=== PATIENT | female | born 1940 | race Caucasian/White ===

== ENCOUNTER 2019-08-26 11:05 | Outpatient (CLI) | payer MEDICARE, SELFPAY ==
[2019-08-26 11:33] LABS: Basophils % 0.7 %; Eosinophils # 0.1 10^3/uL (0.0-0.8); Eosinophils % 1.9 %; Hematocrit 40.9 % (37.0-47.0); Hemoglobin 13.2 g/dL (11.5-15.3); Lymphocytes % 23.3 %; Mean Corpuscular HGB Conc 32.3 g/dL (30.0-36.0); Mean Corpuscular Hemoglobin 29.7 pg (28.0-34.0); Mean Corpuscular Volume 91.9 fL (81-99); Mean Platelet Volume 10.2 fL (7.4-10.4); Monocytes # 0.4 10^3/uL (0.2-0.9); Monocytes % 8.9 %; Neutrophils # 2.7 10^3/uL (1.8-7.7); Nucleated Red Blood Cells % 0 %; Platelet Count 213 10^3/cmm (130-400); Red Blood Count 4.45 10^6/uL (4.1-5.3); Red Cell Distribution Width 12.3 % (12.1-15.1); White Blood Count 4.2 10^3/uL (4.0-10.0)
[2019-08-26 12:01] LABS: Alanine Aminotransferase 9 U/L (0-33); Albumin Level 3.9 g/dL (3.5-5.2); Alkaline Phosphatase 69 IU/L (35-105); Anion Gap 15.2 (5-19); Aspartate Amino Transferase 18 U/L (0-32); Blood Urea Nitrogen 9 mg/dL (8-23); Calcium 9.6 mg/dL (8.5-10.5); Carbon Dioxide 26 mmol/L (22-29); Chloride 104 mmol/L (98-107); Globulin 3.6 g/dL (1.3-4.6); Glucose 103 mg/dL (65-115); Potassium 4.2 mmol/L (3.5-5.1); Sodium 141 mmol/L (136-145); Total Bilirubin 0.8 mg/dL (0.15-1.2); Total Protein 7.5 g/dL (6.6-8.7)
[2019-08-26 12:35] LABS: 25 Hydroxy Vitamin D 48 ng/mL (30-100)
--- NOTE | 2019-08-27 06:53 | ONC FU_ITS ---
Dr. Arora Patient Follow-Up Note Patient: Mame Zhao Unit #: [id number]: [id number] Dicatated By: Bennie Arora M.D.Date of Visit:Aug 26, 2019 Onc Med Follow-up/Prog Note Chief Complaint: Breast cancer/endometrial cancer. History of Present Illness: This is a 79 year-old woman with grade 2 infiltrating ductal carcinoma of the right breast, stage IA (T1b, N0, M0), ER/VA positive and HER-2/al negative. She has a history of early stage endometrial cancer diagnosed in 2008. She underwent primary resection in July of [address] Fortune. In November of 2009 she had a local recurrence for which she underwent definitive radiation treatment by Dr. Augustina Gan. She was subsequently followed by Dr. Mccarty for the endometrial cancer. She was found to have an abnormal routine screening mammogram on 04/02/2014. The followup additional views on 04/16/2014 showed persistent 11 mm distortion at 7:00, but no further lesions at 12:00. She underwent an ultrasound-guided biopsy of the 7:00 lesion of the right breast on 05/06/2014. Pathology showed grade 2 infiltrating ductal carcinoma, with a high proliferative activity, ER 100%, VA 94%, HER-2/al 2+ by IHC, but FISH not amplified at 1.1. On 07/08/2014 she underwent right breast lumpectomy and sentinel lymph node biopsy by Dr. Das. Her surgical pathology showed 6x5 mm, grade 2/3, infiltrating ductal carcinoma. Margins were negative but close at 1 mm superiorly. One sentinel lymph node was negative for metastatic disease. Thus her disease was pathologic stage IA (pT1b, pN0). Oncotype DX score was low at 17, corresponding to an 11% risk of recurrence in the next 10 years following hormonal treatment. She was given adjuvant radiation to the right breast, completed on 10/04/2014 to a total dose of 6400 cGy. She began on adjuvant hormonal therapy with anastrozole 1 mg daily on 08/03/2014. Vitamin D deficiency was replaced. DEXA scan revealed moderate osteopenia with T score -1.6. Her repeat DEXA scan in August 2016 continued to show osteopenia with T score -1.7 in the left femoral neck and -1.6 in the right femoral neck, but not significantly changed from the previous study. She continued adjuvant hormonal therapy with anastrozole 1 mg daily, which she tolerated well. Her other medical illnesses, in addition to endometrial cancer, include hyperlipidemia and hypothyroidism. She is a nonsmoker. INTERIM HISTORY: She is seen for a scheduled visit. She has been feeling good generally. She says she has stopped the anastrozole at the end of July, as she had completed her 5 years of treatment. Her only significant complaint is that she had developed a respiratory infection 8 to 10 days ago, but it is pretty well resolved now. Her energy has been good and she has normal activity. Appetite also is good. Her weight is stable. She had fever at the initial onset of the respiratory infection, but otherwise none. She has not had hot flashes or night sweating. She does not have cough now, and she has no shortness of breath or chest pain. She has no GI complaints. Her bladder function has been pretty good lately, as she has not had as much urgency. She has had no further vaginal bleeding or spotting. She is not having any significant joint or bone pain. She has no focal neurologic symptoms. Medications: Brinzolamide-Brimonidine 1 drop(s) (of 1-0.2 %) Suspension Ophthalmic b.i.d., Calcium + D 1 Tablet Oral daily, Cholecalciferol 1 (1000 Units) Tablet Oral daily, Dorzolamide HCl Solution Ophthalmic b.i.d., Hair Skin & Nails Gummies 1 Tablet, chewable Oral daily, Levothyroxine Sodium 1 (50 mcg) Tablet Oral daily, Senna 1 Capsule Oral daily, Timolol Maleate Solution Ophthalmic b.i.d. Allergies: No Known Allergies. Review of Systems: Constitutional - Her energy is good. She has normal activity. Her appetite is good and her weight is stable. No fever, chills, hot flashes, or night sweats. ECOG score is 0, ENMT - She currently has a cold. Otherwise, she has no sinus congestion/drainage. No mouth sores. No sore throat or difficulty swallowing, Hematologic/Lymphatic - No abnormal bruising or bleeding, Respiratory - No shortness of breath. No cough. No pleuritic pain or hemoptysis, Cardiovascular - No angina pain. No palpitations, Gastrointestinal - No nausea or vomiting. No heartburn or acid reflux. Her bowels are regular. No diarrhea or constipation. No blood in the stool or black stools, Genitourinary (F) - No dysuria or hematuria. No urinary frequency. No urgency or incontinence, Musculoskeletal - No joint or bone pain, Integumentary - No skin complications, Neurologic - No headache. She gets dizzy if she gets up too quickly. No numbness/paresthesias or other focal neurologic symptoms, Psychiatric - No anxiety or depression. No insomnia. Vital Signs: Performed on Aug 26, 2019 12:35 Height - 64.00 in Weight - 131.6 lbs (LOW) BSA - 1.64 sq.m BMI - 22.59 Temperature - 99.0 F (HIGH) Pulse - 56 /min (LOW) Respiration - 18 /min BP - 148/61 mm(hg) (HIGH) O2 Sat - 100 % Pain - 0 Physical Examination: Constitutional - She looks good generally, Eyes - Sclerae nonicteric. Conjunctivae clear, ENMT - No lesions noted in the oral cavity, Hematologic/Lymphatic - No cervical or clavicular adenopathy, Respiratory - Lungs are clear with good air movement bilaterally, Cardiovascular - Heart rhythm is regular. There is no murmur, gallop, or rub noted, Breasts - There are no breast masses noted. There is no axillary adenopathy, Abdomen - Soft. Liver and spleen are not enlarged. There is no abdominal mass or ascites noted and there is no inguinal adenopathy, Extremities - No edema. Pedal pulses are palpable bilaterally, Neurologic - No focal neurologic deficits noted. Lab/Imaging: Test performed on Aug 26, 2019 11:18 Sodium 141 mmol/L Vitamin D (25-Hydroxy), Total 48 ng/mL Potassium 4.2 mmol/L Chloride 104 mmol/L CO2 26 mmol/L Anion Gap 15.2 BUN 9 mg/dL Creatinine 0.7 mg/dL Cr Clearance (Est) 61.41 mL/min Glucose 103 mg/dL Calcium 9.6 mg/dL Protein, Total 7.5 g/dL Albumin 3.9 g/dL Globulin 3.6 g/dL Bilirubin, Total 0.8 mg/dL ALT (SGPT) 9 U/L AST (SGOT) 18 U/L Alkaline Phosphatase 69 IU/L WBC 4.2 10 3/uL RBC 4.45 10 6/uL HGB 13.2 g/dL HCT 40.9 % MCV 91.9 fL MCH 29.7 pg MCHC 32.3 g/dL RDW 12.3 % Platelet Count 213 10 3/cmm MPV 10.2 fL Neutrophils 2.7 10 3/uL Lymphocytes 1.0 10 3/uL Monocytes 0.4 10 3/uL Eosinophils 0.1 10 3/uL Basophils 0.0 10 3/uL Neutrophil % 65.0 % Lymphocyte % 23.3 % Monocyte % 8.9 % Eosinophil % 1.9 % Basophils % 0.7 % Impression: 1. Patient with grade 2 infiltrating ductal carcinoma of the right breast, stage IA (T1b, N0, M0), ER/VA positive and HER-2/al negative. Oncotype DX score was 17, corresponding to 11% risk of recurrence in the next 10 years following hormonal treatment, which was low risk category. Adjuvant chemotherapy was not recommended. 2. She underwent right breast lumpectomy with axillary sentinel lymph node biopsy on 07/08/2014. 3. She completed adjuvant radiation treatment to 6400 cGy on 10/04/2014. 4. Adjuvant hormonal therapy with anastrozole 1 mg daily began on 08/03/2014. 5. She underwent surgical resection for early stage endometrial carcinoma in July 2009. She had local recurrence in November 2009, treated with definitive radiation. Her other medical illnesses include: 6. Hyperlipidemia. 7. Hypothyroidism. 8. She had evidence of osteopenia by DEXA scan. During followup she had continued to tolerate anastrozole with no significant adverse effects. She stopped her treatment at the end of July after completing 5 years of treatment. She appears to be doing well clinically. There has been no evidence of recurrence of the breast cancer. Plan: She will be followed now on observation/expectant management. I will see her again in 1 year. Signed By: Bennie Arora M.D. <<Signature on File>>
== END 2019-08-26 11:06 | disposition home or self-care (01) ==
LOC: ONCMED 11:08
PROVIDERS: Family Provider Internal Medicine; PCP Internal Medicine; Visit Provider Internal Medicine Medical Oncology
DX: Z08 Encounter for follow-up examination after completed treatment for malignant neoplasm (principal); Z85.3 Personal history of malignant neoplasm of breast; E55.9 Vitamin D deficiency, unspecified; M85.80 Other specified disorders of bone density and structure, unspecified site; Z85.42 Personal history of malignant neoplasm of other parts of uterus; E78.5 Hyperlipidemia, unspecified; E03.9 Hypothyroidism, unspecified; Z79.899 Other long term (current) drug therapy; Z92.3 Personal history of irradiation; Z92.23 Personal history of estrogen therapy
CPT/HCPCS: 80053; 82306; 85025; G0463

== ENCOUNTER 2020-04-29 08:43 | Outpatient (CLI) | payer MEDICARE, SELFPAY ==
--- NOTE | 2020-04-29 08:50 | MM_ITS ---
WS: [id number] Exam: [place] [id number] Date/Time of Exam: 04/29/2020 9:08 AM Reason For Exam: HX OF BREAST CA VIEWS: MLO, CC, and ML views both breasts. Comparison made with prior exam of 04/19/2017. Findings: Postoperative changes noted in the right breast which are stable in appearance. No new suspicious fin ding in either breast. The breasts are heterogeneously dense. MM/[place] [id number] Impression: BI-RADS: 2-Benign FOLLOW-UP: 1 Year Follow-up This mammogram was also analyzed by the Computer Aided Detection System R2 Imag e Refining Equipment Operator.
== END 2020-04-29 08:44 | disposition home or self-care (01) ==
LOC: ONCMED 08:47
PROVIDERS: PCP Internal Medicine; Visit Provider Internal Medicine Medical Oncology
DX: Z85.3 Personal history of malignant neoplasm of breast (principal)
CPT/HCPCS: 77066

== ENCOUNTER 2020-08-25 13:50 | Outpatient (CLI) | payer MEDICARE, SELFPAY ==
--- NOTE | 2020-08-28 09:09 | ONC FU_ITS ---
Dr. Arora Patient Follow-Up Note Patient: Mame Zhao Unit #: [id number]: [id number] Dicatated By: Bennie Arora M.D.Date of Visit:Aug 25, 2020 Onc Med Follow-up/Prog Note Chief Complaint: Breast cancer/endometrial cancer. History of Present Illness: This is an 80 year-old woman with grade 2 infiltrating ductal carcinoma of the right breast, stage IA (T1b, N0, M0), ER/PA positive and HER-2/al negative. She has a history of early stage endometrial cancer diagnosed in 2008. She underwent primary resection in July of [address] Fortune. In November of 2009 she had a local recurrence for which she underwent definitive radiation treatment by Dr. Augustina Gan. She was subsequently followed by Dr. Mccarty for the endometrial cancer. She was found to have an abnormal routine screening mammogram on 04/02/2014. The followup additional views on 04/16/2014 showed persistent 11 mm distortion at 7:00, but no further lesions at 12:00. She underwent an ultrasound-guided biopsy of the 7:00 lesion of the right breast on 05/06/2014. Pathology showed grade 2 infiltrating ductal carcinoma, with a high proliferative activity, ER 100%, PA 94%, HER-2/al 2+ by IHC, but FISH not amplified at 1.1. On 07/08/2014 she underwent right breast lumpectomy and sentinel lymph node biopsy by Dr. Das. Her surgical pathology showed 6x5 mm, grade 2/3, infiltrating ductal carcinoma. Margins were negative but close at 1 mm superiorly. One sentinel lymph node was negative for metastatic disease. Thus her disease was pathologic stage IA (pT1b, pN0). Oncotype DX score was low at 17, corresponding to an 11% risk of recurrence in the next 10 years following hormonal treatment. She was given adjuvant radiation to the right breast, completed on 10/04/2014 to a total dose of 6400 cGy. She began on adjuvant hormonal therapy with anastrozole 1 mg daily on 08/03/2014. Vitamin D deficiency was replaced. DEXA scan revealed moderate osteopenia with T score -1.6. Her repeat DEXA scan in August 2016 continued to show osteopenia with T score -1.7 in the left femoral neck and -1.6 in the right femoral neck, but not significantly changed from the previous study. She continued adjuvant hormonal therapy with anastrozole 1 mg daily, which she tolerated well. She stopped it in July 2019 after completing 5 years of treatment. Her other medical illnesses, in addition to endometrial cancer, include hyperlipidemia and hypothyroidism. She is a nonsmoker. INTERIM HISTORY: She is seen for a scheduled visit. She has been feeling good generally. She has good energy and activity tolerance. ECOG score is 0. She has good appetite. She has no fever, night sweats, or hot flashes. Her vision has improved since she had cataract excisions. She sometimes has a runny nose. She has no shortness of breath, cough, or chest pain. She has no GI/ complaints other than mild constipation, which is adequately managed with senna. She has no significant joint or bone pain. She does not complain of headache or dizziness. She occasionally has tingling in her feet. She has no other focal neurologic symptoms. Medications: Brinzolamide-Brimonidine 1 drop(s) (of 1-0.2 %) Suspension Ophthalmic b.i.d., Calcium + D 1 Tablet Oral daily, Cholecalciferol 1 (1000 Units) Tablet Oral daily, Dorzolamide HCl Solution Ophthalmic b.i.d., Hair Skin & Nails Gummies 1 Tablet, chewable Oral daily, Levothyroxine Sodium 1 (50 mcg) Tablet Oral daily, Senna 1 Capsule Oral daily, Timolol Maleate Solution Ophthalmic b.i.d. Allergies: No Known Allergies. Vital Signs: Performed on Aug 25, 2020 14:47 Height - 64.00 in Weight - 129 lbs (LOW) BSA - 1.62 sq.m BMI - 22.14 Temperature - 98.8 F Pulse - 70 /min Respiration - 18 /min BP - 147/66 mm(hg) (HIGH) O2 Sat - 99 % Pain - 0 Fatigue - 2 Physical Examination: Constitutional - Looks good generally, Eyes - Sclerae nonicteric. Conjunctivae clear, ENMT - No lesions noted in the oral cavity, Hematologic/Lymphatic - No cervical, clavicular, or axillary adenopathy, Respiratory - Lungs are clear with good air movement bilaterally, Cardiovascular - Heart rhythm is regular. There is no murmur, gallop, or rub noted, Abdomen - Soft. Liver and spleen are not enlarged. There is no abdominal mass or ascites noted and there is no inguinal adenopathy, Extremities - No edema, Neurologic - No focal neurologic deficits noted. Problem List: 1. Patient with grade 2 infiltrating ductal carcinoma of the right breast, stage IA (T1b, N0, M0), ER/PA positive and HER-2/al negative. 2. She underwent surgical resection for early stage endometrial carcinoma in July 2009. She had local recurrence in November 2009, treated with definitive radiation. 3. Hyperlipidemia. 4. Hypothyroidism. 5. She had evidence of osteopenia by DEXA scan. Problems Addressed with this Encounter and Plan: 1. Patient with grade 2 infiltrating ductal carcinoma of the right breast, stage IA (T1b, N0, M0), ER/PA positive and HER-2/al negative. Oncotype DX score was 17, corresponding to 11% risk of recurrence in the next 10 years following hormonal treatment, which was low risk category. Adjuvant chemotherapy was not recommended. She underwent right breast lumpectomy with axillary sentinel lymph node biopsy on 07/08/2014. She completed adjuvant radiation treatment to 6400 cGy on 10/04/2014. Adjuvant hormonal therapy with anastrozole 1 mg daily began on 08/03/2014. It was stopped in July 2019 after completing 5 years of treatment. She has been doing well clinically. Thus far during follow-up there has been no evidence of recurrence of the breast cancer. She remains on observation/expectant management. At this point she will continue her regular follow-up with Dr. Barry. I will plan to see her again only as needed. 2. She underwent surgical resection for early stage endometrial carcinoma in July 2009. She had local recurrence in November 2009, treated with definitive radiation. During follow-up there has been no evidence for any further recurrence of the endometrial cancer. Signed By: Bennie Arora M.D. <<Signature on File>>
== END 2020-08-25 13:51 | disposition home or self-care (01) ==
LOC: ONCMED 13:53
PROVIDERS: PCP Internal Medicine; Visit Provider Internal Medicine Medical Oncology
DX: Z08 Encounter for follow-up examination after completed treatment for malignant neoplasm (principal); Z85.3 Personal history of malignant neoplasm of breast; Z85.41 Personal history of malignant neoplasm of cervix uteri; E78.5 Hyperlipidemia, unspecified; E03.9 Hypothyroidism, unspecified; M85.80 Other specified disorders of bone density and structure, unspecified site; Z79.899 Other long term (current) drug therapy
CPT/HCPCS: G0463

== ENCOUNTER 2021-05-08 10:47 | Outpatient (CLI) | payer MEDICARE, SELFPAY ==
--- NOTE | 2021-05-08 10:52 | MM_ITS ---
WS: [id number] BILATERAL DIAGNOSTIC DIGITAL MAMMOGRAM WITH CAD HISTORY: HX OF BREAST CA COMPARISON: 04/29/2020 and 04/28/2019 and 04/21/2018 Bilateral CC, ML and MLO views submitted. Computer aided detection analyzed. Breast composition: The breasts are heterogeneously dense, which may obscure small masses. No suspici ous masses, microcalcifications or architectural distortion. Volume loss and postsurgical changes in the RIGHT breast from prior lumpectomy. Scarring and dystrophic calcifications within the central RIG HT breast are stable. No new mass. Benign calcifications in the LEFT breast. No architectural distort ion. MM/[place] [id number] IMPRESSION: BI-RADS: 2-Benign FOLLOW UP: 1 Year Follow-up
== END 2021-05-08 10:48 | disposition home or self-care (01) ==
LOC: RADSHAW 10:50
PROVIDERS: PCP Internal Medicine; Visit Provider Internal Medicine Medical Oncology
DX: Z85.3 Personal history of malignant neoplasm of breast (principal)
CPT/HCPCS: 77066

== ENCOUNTER 2022-05-11 08:32 | Outpatient (CLI) | payer MEDICARE, SELFPAY ==
--- NOTE | 2022-05-11 08:37 | MM_ITS ---
WS: [id number] DIAGNOSTIC BILATERAL DIGITAL BREAST TOMOSYNTHESIS MAMMOGRAPHY WITH CAD HISTORY: HX OF BREAST CA COMPARISON: 05/08/2021, 04/29/2020 TECHNIQUE: Bilateral craniocaudad, mediolateral oblique, and mediolateral views are submitted with to mosynthesis and SM. Computer aided detection utilized. Breast composition: The breasts are heterogeneously dense, which may obscure small masses. Volume los s and posttreatment changes in the RIGHT breast are stable. Dystrophic calcification in the central p osterior breast. No suspicious masses or interval change. MM/[place] [id number] IMPRESSION: BI-RADS: 2-Benign FOLLOW UP: 1 Year Follow-up
== END 2022-05-11 08:33 | disposition home or self-care (01) ==
PROVIDERS: PCP Internal Medicine; Visit Provider Internal Medicine
DX: Z85.3 Personal history of malignant neoplasm of breast (principal)
CPT/HCPCS: 77062; G0279

== ENCOUNTER 2023-06-26 12:17 | Outpatient (CLI) | payer MEDICARE, SELFPAY ==
--- NOTE | 2023-06-26 12:43 | MM_ITS ---
WS: [id number] BILATERAL 3D TOMOSYNTHESIS DIGITAL DIAGNOSTIC MAMMOGRAPHY WITH CAD CLINICAL INFORMATION: HX OF BREAST CA HISTORY: RIGHT lumpectomy. COMPARISON: 2021 TECHNIQUE: Bilateral CC, MLO, and ML views. FINDINGS: The breasts are composed of heterogeneous fibroglandular density, which can limit the detection of sm all underlying mass lesions. Vascular calcifications. Dystrophic calcifications. Incidental punctate calcifications. Prior postoperative changes RIGHT lumpectomy with parenchymal fibrosis and volume los s. Treatment-related changes RIGHT breast. No suspicious focal mass, asymmetry, calcifications, or architectural distortion. No evidence of finesse gnancy. IMPRESSION: MM/[place] [id number] BI-RADS: 2-Benign FOLLOW UP: 1 Year Follow-up Recommend return to annual diagnostic mammography.
== END 2023-06-26 12:18 | disposition home or self-care (01) ==
LOC: RAD 12:17
PROVIDERS: PCP Internal Medicine; Visit Provider Internal Medicine
DX: Z85.3 Personal history of malignant neoplasm of breast (principal)
CPT/HCPCS: 77062; G0279

== ENCOUNTER 2024-07-09 11:31 | Outpatient (CLI) | payer MEDICARE, SELFPAY ==
--- NOTE | 2024-07-09 11:40 | MM_ITS ---
WS: [id number] Bilateral diagnostic 3D tomosynthesis digital mammogram, 07/09/2024 Clinical Data: HX OF MALIGANANT NEOPLASM OF BREAST Comparison: 06/26/2023, 05/11/2022, 05/08/2021, 04/29/2020, 04/28/2019, 04/21/2018, 04/19/2017, 017, 04/05/2016, 04/04/2015, 04/16/2014, 04/02/2014, 12/01/2012, 05/30/2011, 05/12/2010, 04/21/2008, 04/15, 04/10/2007, 02/05/2006. Findings: Both breasts show heterogeneous density. There is volume loss and skin thickening of the right breast because of the previous lumpectomy and other treatment. The left breast is normal. No spiculated mas ses nor clustered calcifications are seen. MM/MM diag BI tomosynthesis [id number] Impression: 1. No change in right breast posttreatment. 2. Negative left breast. 3. Recommend annual mammograms. BIRADS: 2 - Benign FOLLOW UP: 1 Year Follow-up The CAD radio program checker was used
== END 2024-07-09 11:32 | disposition home or self-care (01) ==
PROVIDERS: PCP Internal Medicine; Visit Provider Internal Medicine
DX: Z85.3 Personal history of malignant neoplasm of breast (principal); R92.333 Mammographic heterogeneous density, bilateral breasts; Z98.890 Other specified postprocedural states
CPT/HCPCS: 77062; G0279